=== PATIENT | female | born 1950 | race Caucasian/White ===

== ENCOUNTER 2017-08-24 13:07 | Emergency (ER) | payer OTHER ==
[~2017-08-24] VITALS: Ht 170.2 cm; Wt 84.4 kg
[2017-08-24 14:39] VITALS: BP 136/83
[2017-08-24] MEDS ORDERED: cefTRIAXone SOD 1,000 MG VL ONE (14:55)
[2017-08-24] MEDS ORDERED: cefTRIAXone SOD 1,000 MG VL IM ONE (15:00)
[2017-08-24] MEDS ORDERED: ALBUTEROL SULF 2.5 MG/0.5ML(0.5%) NEB SOLN NEB ONE (15:15)
[2017-08-24] MEDS ORDERED: IPRATROPIUM BROM 0.5 MG/2.5ML INH SOL NEB ONE (15:15)
== END 2017-08-24 15:41 | disposition home or self-care (01) ==
LOC: ER 13:12
DX: J18.9 Pneumonia, unspecified organism (principal); Z90.710 Acquired absence of both cervix and uterus
CPT/HCPCS: 71046; 93005; 96372; 99284; J0696